=== PATIENT | female | born 1965 | race Caucasian/White ===

== ENCOUNTER → 2020-01-15 | Outpatient (CLI) | payer OTHER, MEDICAID ==
[~2020-01-15] MED LIST: ACETAMINOPHEN-1 EAC1 PO; ASPIR 8181 M1; ATIVAN0.5 MG PO; BACTRIM DS TAB1 EACH PO; BACTROBAN CREAM30 G1 TOP; BENTYL20 MG PO; CARVEDILOL25 MG; CELEXA10 MG PO; CELEXA20 MG; CIPROFLOXACIN500 M1 PO; CLONAZEPAM 1 MG1 M1 PO; CLONAZEPAM2 MG PO; COREG25 MG PO; COZAAR 25 MG TA25 M1 PO; DITROPAN XL10 M1 PO; DOXEPIN 50MG CA50 M1; DOXEPIN HC10 MG/1 ML PO; FLAGYL500 MG PO; GABAPENTIN; HYDROCODONE-AP1 EAC6 PO; IRON325; LEXAPRO 10 MG T10 MG PO; METFORMIN HCL500 MG PO; NEURONTIN 400M400 M2 PO; NEXIUM40 MG PO; NORCO 5-325 TA1 EACH PO; OXYBUTYNIN 5 MG5 M2 PO; OXYTROL FOR WO1 EACH TD; PENICILLIN V P500 MG PO; ROBAXIN500 MG PO; TRAMADOL 50 MG50 MG; TRAMADOL 50 MG50 MG PO; TYLENOL325 M1 PO; ULTRAM 50MG TAB50 MG PO; XANAX 0.5 MG0.5 MG; ZOFRAN ODT4 MG SUBLING
== END ==
LOC: M.PC 10:00
PROVIDERS: ATTEND Physical Medicine & Rehabilitation
DX: M51.36 Other intervertebral disc degeneration, lumbar region (principal); M47.816 Spondylosis without myelopathy or radiculopathy, lumbar region

== ENCOUNTER → 2020-02-19 | Outpatient (CLI) | payer OTHER, MEDICAID | END | disposition home or self-care (01) | LOC: M.PC 05:25 | PROVIDERS: ATTEND Physical Medicine & Rehabilitation | DX: M47.816 Spondylosis without myelopathy or radiculopathy, lumbar region (principal); M54.5 Low back pain; I10 Essential (primary) hypertension; F32.9 Major depressive disorder, single episode, unspecified; F41.9 Anxiety disorder, unspecified; F17.210 Nicotine dependence, cigarettes, uncomplicated; Z90.49 Acquired absence of other specified parts of digestive tract; Z98.890 Other specified postprocedural states; Z79.899 Other long term (current) drug therapy; Z88.8 Allergy status to other drugs, medicaments and biological substances ==

== ENCOUNTER → 2020-05-13 | Outpatient (CLI) | payer OTHER, MEDICAID | LOC: M.PC 08:58 | PROVIDERS: ATTEND Physical Medicine & Rehabilitation | DX: M47.816 Spondylosis without myelopathy or radiculopathy, lumbar region (principal); M51.36 Other intervertebral disc degeneration, lumbar region; Z96.652 Presence of left artificial knee joint; Z68.43 Body mass index [BMI] 50.0-59.9, adult; Z79.891 Long term (current) use of opiate analgesic; Z79.899 Other long term (current) drug therapy ==